=== PATIENT | male | born 1950 | race Caucasian/White ===

== ENCOUNTER 2019-02-11 08:18 | Inpatient (IN) | payer MEDICARE, OTHER ==
[~2019-02-11] VITALS: Ht 177.8 cm; Wt 90.0 kg
[2019-02-11] VITALS (24 sets, daily range): BP systolic 101–190; BP diastolic 52–94
[2019-02-11] MEDS ORDERED: nitroGLYCERIN 0.4mg SUBLingual tab SL ONE (08:48)
--- NOTE | 2019-02-11 08:49 | NUR ---
PT C/O CP WITH RADIATING TO JAW 10/14. [place] NOTIFIED AND VERBAL ORDER FOR NTG. PT GIVEN NTG X1
--- NOTE | 2019-02-11 08:51 | NUR ---
REPEAT EKG DONE
[2019-02-11] MEDS ORDERED: morphine 4 MG/ML inj SYRINge IV ONE ×2 (08:55→09:00)
[2019-02-11] MEDS ORDERED: nitroGLYCERIN in D5W 50mg/250ml (Tridil) infusion IV ONE (09:00)
[2019-02-11 09:05] LABS: ALANINE AMINOTRANSFERASE 53 U/L (12-78); ALBUMIN 3.5 G/DL (3.4-5.0); ALBUMIN/GLOBULIN RATIO 0.9 (1.1-1.5); ALKALINE PHOSPHATASE 73 IU/L (46-116); ANION GAP 10 (8-16); ASPARTATE AMINO TRANSFERASE 67 U/L (10-37); BILIRUBIN,TOTAL 0.7 MG/DL (0.1-1.0); BLOOD UREA NITROGEN 11 MG/DL (7-18); BUN/CREATININE RATIO 12.5 (5.4-32.0); CALCIUM 8.3 MG/DL (8.5-10.1); CHLORIDE 108 MMOL/L (99-107); CREATININE 0.88 MG/DL (0.60-1.10); GLUCOSE 103 MG/DL (70-104); POTASSIUM 3.6 MMOL/L (3.5-5.1); SODIUM 144 MMOL/L (135-145); TOTAL CARBON DIOXIDE 25.7 MMOL/L (24-32); TOTAL PROTEIN 7.2 G/DL (6.4-8.2); eGFR 86 ML/MIN
[2019-02-11] MEDS ORDERED: metoprolol tartrate 1mg/ml inj IV ONE (09:10)
[2019-02-11] MEDS ORDERED: nitroGLYCERIN-Tridil 50MG/D5W 250 ML IV ONE ×2 (09:20→09:50)
[2019-02-11 09:28] LABS: MAGNESIUM 1.7 MG/DL (1.5-2.4)
[2019-02-11 09:29] LABS: BASOPHILS % (AUTO) 0.4 % (0-1); EOSINOPHILS # (AUTO) 0.2 X10'3 (0-0.9); EOSINOPHILS % (AUTO) 3.7 % (0-6); HEMATOCRIT 42.6 % (42.0-52.0); HEMOGLOBIN 14.6 g/dl (14.0-17.9); LYMPHOCYTES # (AUTO) 1.4 X10'3 (1.1-4.8); LYMPHOCYTES % (AUTO) 21.4 % (21-51); MEAN CORPUSCULAR HEMOGLOBIN 32.4 PG (27.0-31.0); MEAN CORPUSCULAR HGB CONC 34.2 g/dL (33.0-36.5); MEAN CORPUSCULAR VOLUME 94.7 FL (78-98); MEAN PLATELET VOLUME 7.3 FL (7.4-10.4); MONOCYTES # (AUTO) 0.7 X10'3 (0-0.9); MONOCYTES % (AUTO) 11.5 % (2-12); PLATELET COUNT 118 X10'3 (140-440); RED CELL DISTRIBUTION WIDTH 14.1 % (11.5-14.5); WHITE BLOOD COUNT 6.4 X10'3 (4.5-11.0)
[2019-02-11] MEDS ORDERED: normal saline 1000ml 1,000 ML IV ONE (09:45)
[2019-02-11] MEDS ORDERED: midazolam 2 mg/2 ml injection ONE (09:50)
[2019-02-11] MEDS ORDERED: iohexol 350 MG/1 ML 200ml bottle ONE (09:51)
[2019-02-11] MEDS ORDERED: iohexol 350 MG/ML 50ML vial IV ONE ×2 (09:51→11:11)
[2019-02-11] MEDS ORDERED: heparin 1,000unit/ml 10ml vial 10 ML ONE (09:51)
[2019-02-11] MEDS ORDERED: LIDOcaine 1% (10mg/ml)w/preservative injection 20ml MDV ONE (09:51)
[2019-02-11] MEDS ORDERED: fentaNYL/PF 50MCG/1 ML 2ML syringe ONE (09:51)
[2019-02-11] MEDS: heparin 25,000 UNIT/250ml bag 250 ML IV SCH (10:04)
--- NOTE | 2019-02-11 10:05 | NUR ---
REPORT TO FORREST NAVARRO CHARTER AND TOUR BUS DRIVER; PATIENT WITH NITRO GTT AT 15 UNITS/HR, HERPARIN GTT AT 1000 UNITS/HR AND NS AT 20 ML/HR . PATIENT AXOX4, GROIN SHAVED BY TECH: CUTS TO GROIN NOTED, CLEANED WITH CLORAPREP, DORSALIS PEDALIS PULSES MARKED, CONSENTS SIGNED. SR NO ECTOPY, NO ARRYTHMIAS NOTED
[2019-02-11] MEDS ORDERED: ticagrelor 90mg tablet ONE (11:25)
--- NOTE | 2019-02-11 11:45 | NUR ---
REC'D PT POST STEMI/STENT PLACEMENT-AWAITING OPEN BED IN ICU. PT A&O X4/DENIES PAIN/SOB, SITE CLEAR/SOFT/NON-TENDER. 1215-PT TO BE TRANSFERRED TO ROOM 2045, CALLED REPORT TO FORREST MARTINEZ AND RELAYED I HAD ONLY TAKEN OVER CARE APPROX 15" AGO AND WOULD HOLD THE PT TO COMPLETE DART/MED REC PROCESS. ALL ASSESSMENTS REMAINED STABLE AND WITHOUT COMPLICATION. I PREPARED TO TRANSPORT THE PT AT 1345 AND PERFORMED A FINAL RIGHT GROIN CHECK WHICH REVEALED FIRM/TENDER AREA DIRECTLY ABOVE INSERTION SITE. I ALERTED FORREST BHATTI WHO ENTERED THE ROOM AND HELD PRESSURE/UNDER PT PROTEST TO THE SITE WHILE I ALERTED ICU OF THE CHANGE IN PT CONDITION AND OUR INTENTION TO TRANSPORT IMMEDIATELY. PT CARE TRANSFERRED AT 1410 TO FORREST MARTINEZ/FORREST MARION/FORREST MANRIQUE-PT REMAINED STABLE/A&O Addendum: 02/11/19 at 1534 by Jo Calvillo RN Amended: Links added.
[2019-02-11] MEDS ORDERED: CHOL400T32 PO (12:57)
[2019-02-11] MEDS ORDERED: CARV-50 (12:57)
[2019-02-11] MEDS ORDERED: ATOR80TA PO (12:57)
[2019-02-11] MEDS ORDERED: ZET10T PO (12:57)
[2019-02-11] MEDS ORDERED: CARV-50 PO (12:57)
[2019-02-11] MEDS ORDERED: EZET10TA48 (12:57)
[2019-02-11] MEDS ORDERED: VITA400C19 PO (12:57)
[2019-02-11] MEDS ORDERED: NIAC500C12 PO (12:57)
[2019-02-11] MEDS ORDERED: ATRNS BOTHNARES (12:57)
[2019-02-11] MEDS ORDERED: ASCO500C15 PO (12:57)
[2019-02-11] MEDS ORDERED: OMEP40CA13 PO (12:57)
[2019-02-11] MEDS ORDERED: FOLI0.4T2 PO (12:57)
[2019-02-11] MEDS ORDERED: ASPI-12 PO (12:57)
[2019-02-11] MEDS ORDERED: PRAS10TA10 PO (12:57)
[2019-02-11] MEDS ORDERED: SITA1TAB6 PO (12:57)
[2019-02-11] MEDS ORDERED: FLO0.4C PO (12:57)
[2019-02-11] MEDS ORDERED: SITA1TAB6 (12:57)
[2019-02-11] MEDS ORDERED: HYDROcodone/acetaminophen 10/325mg tab PO PRN ×3 (14:30→19:50)
[2019-02-11] MEDS ORDERED: OXAZEpam 15mg capsule PO PRN (14:30)
[2019-02-11] MEDS ORDERED: proCHLORperazine 10 MG/2 ml inj IV PRN (14:30)
[2019-02-11] MEDS ORDERED: magnesium hydroxide 30ml (MOM) UD suspension PO PRN (14:30)
[2019-02-11] MEDS ORDERED: morphine 10mg/ml inj. IV PRN (14:30)
[2019-02-11] MEDS ORDERED: acetaminophen 325mg tablet PO PRN (14:30)
[2019-02-11] MEDS ORDERED: cyclobenzaprine 10mg tablet PO PRN (14:30)
[2019-02-11] MEDS ORDERED: hydrALAZINE 20mg/ml inj. IV PRN (16:15)
--- NOTE | 2019-02-11 16:17 | NUR ---
Pt came from research laboratory technician with hematoma. Manual pressure applied to hematoma site and was helpful. Pt's blood pressure is in 170s, Called and received new orders to stop Lopressor and start patient on Coreg 12.5mg, PRN Hydralazine 15mg IV Q4hrs. aware of hematoma.
[2019-02-11] MEDS: carVEDilol 12.5mg tablet PO SCH ×2 (16:50→20:37)
[2019-02-11] MEDS ORDERED: normal saline 1000ml 1,000 ML IV SCH (17:00)
[2019-02-11] MEDS: aspirin 81mg tab.chew PO SCH (17:29)
--- NOTE | 2019-02-11 18:30 | NUR ---
Patient in room ICU 2045. I have received report from FORREST Donovan and had the opportunity to ask questions and assume patient care.
[2019-02-11] MEDS ORDERED: temazepam 15mg capsule PO PRN (19:50)
[2019-02-11] MEDS ORDERED: morphine 2 MG/ML inj. syringe IV PRN (19:50)
[2019-02-11] MEDS: ticagrelor 90mg tablet PO SCH (20:37)
[2019-02-11] MEDS: atorvastatin 20mg tablet PO SCH (20:38)
[2019-02-11] MEDS: docusate sod 100mg capsule PO SCH (20:38)
[2019-02-12] VITALS (22 sets, daily range): BP systolic 120–162; BP diastolic 55–82
[2019-02-12 04:05] LABS: BASOPHILS % (AUTO) 0.3 % (0-1); EOSINOPHILS # (AUTO) 0.2 X10'3 (0-0.9); EOSINOPHILS % (AUTO) 2.1 % (0-6); HEMOGLOBIN 13.3 g/dl (14.0-17.9); LYMPHOCYTES # (AUTO) 1.5 X10'3 (1.1-4.8); LYMPHOCYTES % (AUTO) 18.8 % (21-51); MEAN CORPUSCULAR HEMOGLOBIN 32.6 PG (27.0-31.0); MEAN CORPUSCULAR HGB CONC 34.1 g/dL (33.0-36.5); MEAN CORPUSCULAR VOLUME 95.6 FL (78-98); MEAN PLATELET VOLUME 7.6 FL (7.4-10.4); MONOCYTES % (AUTO) 12.1 % (2-12); NEUTROPHILS # (AUTO) 5.3 X10'3 (1.8-7.7); NEUTROPHILS % (AUTO) 66.7 % (42-75); PLATELET COUNT 103 X10'3 (140-440); RED BLOOD COUNT 4.08 X10'6 (4.70-6.10); RED CELL DISTRIBUTION WIDTH 14.4 % (11.5-14.5); WHITE BLOOD COUNT 7.9 X10'3 (4.5-11.0)
[2019-02-12 04:11] LABS: ALBUMIN 2.7 G/DL (3.4-5.0); ANION GAP 7 (8-16); BLOOD UREA NITROGEN 8 MG/DL (7-18); BUN/CREATININE RATIO 11.6 (5.4-32.0); CALCIUM 7.7 MG/DL (8.5-10.1); CHLORIDE 110 MMOL/L (99-107); CREATININE 0.69 MG/DL (0.60-1.10); GLUCOSE 142 MG/DL (70-104); POTASSIUM 3.3 MMOL/L (3.5-5.1); SODIUM 140 MMOL/L (135-145); TOTAL CARBON DIOXIDE 22.7 MMOL/L (24-32); eGFR > 90 ML/MIN
--- NOTE | 2019-02-12 04:44 | NUR ---
Called Dr. Keller regarding patient's potassium of 3.3 and frequent ectopy. Awaiting a call back.
[2019-02-12] MEDS ORDERED: potassium Cl 20 mEq SR tablet PO PRN (05:00)
[2019-02-12 06:28] LABS: MAGNESIUM 1.5 MG/DL (1.5-2.4)
--- NOTE | 2019-02-12 06:33 | NUR ---
Problems reprioritized. Patient report given, questions answered & plan of care reviewed with FORREST Donovan.
[2019-02-12] MEDS ORDERED: metoprolol succinate 25mg (24-HOUR) SR. Tablet PO SCH (08:00)
[2019-02-12] MEDS: K and/or MAG REPLACEMENT MC SCH (08:00)
--- NOTE | 2019-02-12 09:18 | NUR ---
Spoke with Dr Keller; Ok to give beta eugenio but dont give lisinopril. Dont bolus heparin per protocol; just turn it up to 1000.
[2019-02-12] MEDS: magnesium Cl slow-release 64mg tablet PO PRN ×2 (09:27→13:51)
[2019-02-12] MEDS: potassium Cl 20 mEq SR tablet PO PRN ×2 (09:27→13:51)
[2019-02-12] MEDS: lisinopril 2.5mg tablet PO SCH (09:28)
[2019-02-12] MEDS: docusate sod 100mg capsule PO SCH ×2 (09:28→20:00)
[2019-02-12] MEDS: aspirin 81mg tab.chew PO SCH (09:28)
[2019-02-12] MEDS: carVEDilol 12.5mg tablet PO SCH ×2 (09:28→20:17)
[2019-02-12] MEDS: ticagrelor 90mg tablet PO SCH ×2 (09:28→20:00)
[2019-02-12] MEDS: heparin 25,000 UNIT/250ml bag 250 ML IV SCH ×2 (10:45→17:01)
[2019-02-12] MEDS ORDERED: ROSU40TA PO (11:55)
[2019-02-12 12:58] LABS: MAGNESIUM 1.5 MG/DL (1.5-2.4); POTASSIUM 3.8 MMOL/L (3.5-5.1)
[2019-02-12] MEDS ORDERED: LIDOcaine 1% (10mg/ml)w/preservative injection 20ml MDV ONE (17:13)
[2019-02-12] MEDS ORDERED: nitroGLYCERIN-Tridil 50MG/D5W 250 ML IV ONE (17:13)
[2019-02-12] MEDS ORDERED: midazolam 2 mg/2 ml injection ONE (17:13)
[2019-02-12] MEDS ORDERED: fentaNYL/PF 50MCG/1 ML 2ML syringe ONE (17:13)
[2019-02-12] MEDS ORDERED: iohexol 350 MG/1 ML 200ml bottle ONE (17:14)
[2019-02-12] MEDS ORDERED: heparin 1,000unit/ml 10ml vial 10 ML ONE (17:14)
--- NOTE | 2019-02-12 17:34 | NUR ---
Patient taken down to lab support service tech
[2019-02-12] MEDS ORDERED: ticagrelor 90mg tablet ONE (18:32)
--- NOTE | 2019-02-12 19:03 | NUR ---
I have received report from Benito CLAYTON in fish hatchery laborer, and had the opportunity to ask questions. Will assume patient care upon arrival to unit.
--- NOTE | 2019-02-12 19:15 | NUR ---
Pt arrived from culture media laboratory assistant with Benito CLAYTON, pulses palpable and dopplered, monitoring applied, sheath site clean without hematoma, no drainage on dressing, no c/o pain, vss, pt a&ox4, monitoring applied, all personal items in reach. Will continue to monitor.
[2019-02-12] MEDS ORDERED: OXAZEpam 15mg capsule PO PRN (20:00)
[2019-02-12] MEDS ORDERED: HYDROcodone/acetaminophen 10/325mg tab PO PRN ×2 (20:00)
[2019-02-12] MEDS: atorvastatin 20mg tablet PO SCH (20:17)
[2019-02-13] VITALS (16 sets, daily range): BP systolic 84–126; BP diastolic 49–74
[2019-02-13 05:45] LABS: ALBUMIN 2.8 G/DL (3.4-5.0); ANION GAP 11 (8-16); BLOOD UREA NITROGEN 9 MG/DL (7-18); CALCIUM 8.1 MG/DL (8.5-10.1); CHLORIDE 110 MMOL/L (99-107); CHOL/HDL RATIO 2.4 (0.00-4.99); CHOLESTEROL 83 MG/DL (0-200); CREATININE 0.69 MG/DL (0.60-1.10); GLUCOSE 130 MG/DL (70-104); HDL CHOLESTEROL 35 MG/DL (35-60); LDL CHOLESTEROL 38 MG/DL (50-100); MAGNESIUM 1.6 MG/DL (1.5-2.4); POTASSIUM 3.9 MMOL/L (3.5-5.1); SODIUM 142 MMOL/L (135-145); TOTAL CARBON DIOXIDE 20.9 MMOL/L (24-32); TRIGLYCERIDES 69 MG/DL (20-135); eGFR > 90 ML/MIN
[2019-02-13] MEDS ORDERED: normal saline 1000ml 1,000 ML IV ONE (06:05)
--- NOTE | 2019-02-13 06:30 | NUR ---
Problems reprioritized. Patient report given, questions answered & plan of care reviewed with Zion CLAYTON.
[2019-02-13 06:56] LABS: BASOPHILS % (AUTO) 0.3 % (0-1); EOSINOPHILS # (AUTO) 0.2 X10'3 (0-0.9); EOSINOPHILS % (AUTO) 2.8 % (0-6); HEMATOCRIT 38.9 % (42.0-52.0); HEMOGLOBIN 13.4 g/dl (14.0-17.9); LYMPHOCYTES # (AUTO) 1.1 X10'3 (1.1-4.8); LYMPHOCYTES % (AUTO) 15.1 % (21-51); MEAN CORPUSCULAR HEMOGLOBIN 32.6 PG (27.0-31.0); MEAN CORPUSCULAR HGB CONC 34.4 g/dL (33.0-36.5); MEAN CORPUSCULAR VOLUME 94.8 FL (78-98); MEAN PLATELET VOLUME 7.9 FL (7.4-10.4); MONOCYTES # (AUTO) 0.9 X10'3 (0-0.9); MONOCYTES % (AUTO) 12.2 % (2-12); NEUTROPHILS # (AUTO) 4.9 X10'3 (1.8-7.7); NEUTROPHILS % (AUTO) 69.6 % (42-75); PLATELET COUNT 105 X10'3 (140-440); RED CELL DISTRIBUTION WIDTH 14.4 % (11.5-14.5); WHITE BLOOD COUNT 7.1 X10'3 (4.5-11.0)
[2019-02-13] MEDS: potassium Cl 20 mEq SR tablet PO PRN (07:20)
[2019-02-13] MEDS: docusate sod 100mg capsule PO SCH (07:20)
[2019-02-13] MEDS: carVEDilol 12.5mg tablet PO SCH (07:20)
[2019-02-13] MEDS: ticagrelor 90mg tablet PO SCH (07:20)
[2019-02-13] MEDS: lisinopril 2.5mg tablet PO SCH (07:25)
[2019-02-13] MEDS: K and/or MAG REPLACEMENT MC SCH (07:28)
[2019-02-13] MEDS ORDERED: aspirin 81mg tab.chew PO SCH (08:00)
--- NOTE | 2019-02-13 08:58 | NUR ---
patient with decreased BP; 80's/40's, nonsymptomatic. Placed in vascular position with an improvement to BP. Nursing fluid bolus of 250ML NS being given
--- NOTE | 2019-02-13 11:55 | NUR ---
PAGER ID: [phone] MESSAGE: Natanael Caruso 2; Please call me regarding the discharge of this patient. Cardiology has cleared him. Thanks, Zion CLAYTON [phone]
[2019-02-13] MEDS ORDERED: ipratropium 0.06% nasal spray 15ml NS SCH (13:00)
[2019-02-13] MEDS ORDERED: niacin 500mg timed-release capsule PO SCH (13:00)
[2019-02-13] MEDS ORDERED: LISI2.5T2 PO (13:36)
[2019-02-13] MEDS ORDERED: TICA90TA PO (13:36)
--- NOTE | 2019-02-13 15:00 | NUR ---
Nutrition consult: Patient discharged prior to RD visit. Pt with surgical wound to groin. Pt was on heart healthy diet with documented 75-100% PO intake meeting nutrient needs. Regular BMs. Lipid panel WNL. Addendum: 02/13/19 at [address] Amended: Links added.
[2019-02-13] MEDS ORDERED: NITR0.4T51 SL (15:07)
--- NOTE | 2019-02-13 15:09 | NUR ---
Patient discharged home per MD order. IV removed with cannula intact. VSS; disconnected from monitor. Patient educated on all medications, warning signs and symptoms, and follow up care; all questions answered. Patient wheeled out by hospital staff with all belongings, and riding home with a friend.
[2019-02-13] MEDS ORDERED: metFORMIN 500mg tablet PO SCH (20:00)
[2019-02-13] MEDS ORDERED: tamsulosin 0.4mg capsule PO SCH (21:00)
[2019-02-14] MEDS ORDERED: pantoprazole 40mg Tablet.DR PO SCH (07:30)
[2019-02-14] MEDS ORDERED: ascorbic acid 500mg tablet PO SCH (08:00)
[2019-02-14] MEDS ORDERED: vitamin E 400 unit capsule PO SCH (08:00)
[2019-02-14] MEDS ORDERED: folic acid 0.4mg tablet PO SCH (08:00)
[2019-02-14] MEDS ORDERED: ezetimibe 10mg tablet PO SCH (08:00)
[2019-02-14] MEDS ORDERED: cholecalciferol (vitamin D) 400 unit tablet PO SCH (08:00)
[2019-02-14] MEDS ORDERED: linagliptin 5mg tablet PO SCH (08:00)
[2019-02-14] MEDS ORDERED: aspirin 81mg tab.chew PO SCH (08:30)
== END 2019-02-13 15:10 | disposition home or self-care (01) | DRG 246 ==
LOC: ER 08:18 → ICU 2S 15:35
PROVIDERS: ADMIT Internal Medicine Cardiovascular Disease; ATTEND Family Medicine
PROC: 4A023N7 Measurement of Cardiac Sampling and Pressure, Left Heart, Percutaneous Approach (ICD-10-PCS; principal; 2019-02-11)
PROC: 027034Z Dilation of Coronary Artery, One Artery with Drug-eluting Intraluminal Device, Percutaneous Approach (ICD-10-PCS; 2019-02-11)
PROC: B2111ZZ Fluoroscopy of Multiple Coronary Arteries using Low Osmolar Contrast (ICD-10-PCS; 2019-02-11)
PROC: B2151ZZ Fluoroscopy of Left Heart using Low Osmolar Contrast (ICD-10-PCS; 2019-02-11)
PROC: B3101ZZ Fluoroscopy of Thoracic Aorta using Low Osmolar Contrast (ICD-10-PCS; 2019-02-11)
PROC: B2131ZZ Fluoroscopy of Multiple Coronary Artery Bypass Grafts using Low Osmolar Contrast (ICD-10-PCS; 2019-02-11)
PROC: B2171ZZ Fluoroscopy of Right Internal Mammary Bypass Graft using Low Osmolar Contrast (ICD-10-PCS; 2019-02-11)
PROC: 027034Z Dilation of Coronary Artery, One Artery with Drug-eluting Intraluminal Device, Percutaneous Approach (ICD-10-PCS; 2019-02-12)
DX: T82.897A Other specified complication of cardiac prosthetic devices, implants and grafts, initial encounter (principal); I21.4 Non-ST elevation (NSTEMI) myocardial infarction; K21.9 Gastro-esophageal reflux disease without esophagitis; E78.5 Hyperlipidemia, unspecified; E78.00 Pure hypercholesterolemia, unspecified; E11.9 Type 2 diabetes mellitus without complications; F32.9 Major depressive disorder, single episode, unspecified; Z60.2 Problems related to living alone; F41.9 Anxiety disorder, unspecified; H91.90 Unspecified hearing loss, unspecified ear; I11.0 Hypertensive heart disease with heart failure; G43.909 Migraine, unspecified, not intractable, without status migrainosus; J30.9 Allergic rhinitis, unspecified; I25.10 Atherosclerotic heart disease of native coronary artery without angina pectoris; I50.9 Heart failure, unspecified; Z87.19 Personal history of other diseases of the digestive system; Z79.82 Long term (current) use of aspirin; Z87.891 Personal history of nicotine dependence; Z95.1 Presence of aortocoronary bypass graft; Z95.5 Presence of coronary angioplasty implant and graft; Z79.899 Other long term (current) drug therapy
CPT/HCPCS: 93459; 96374; 96375; 99291; C9604; 36415; 80048; 80053; 80061; 83735; 83880; 84132; 84484; 85025; 85347; 85610; 85730; 87081; 93005; 99152; 99153; A4620; A6258; C1725; C1769; C1874; C1894; G0378; J0360; J1644; J2001; J2250; J2270; J3010; J3490; J7030; J7040; Q9967